=== PATIENT | female | born 1980 ===

== ENCOUNTER 2017-02-15 20:33 | Emergency (ER) | payer OTHER ==
[~2017-02-15] VITALS: Ht 165.1 cm; Wt 145.1 kg
--- NOTE | ~2017-02-15 | EKG ---
PATIENT: BEE HELTON UNIT #: [id number] Ventricular Rate: 78 BPM Atrial Rate: 78 BPM P-R Interval: 160 ms QRS Duration: 80 ms Q-T Interval: 404 ms QTC Calculation(Bezet): 460 ms P [place]: 31 degrees Calculated R [place]: 50 degrees Calculated T [place]: 23 degrees Diagnosis Line: Normal sinus rhythm Diagnosis Line: Normal ECG Diagnosis Line: No previous ECGs available Diagnosis Line: Confirmed by RICARDO BRAMBILA MD ([id number]) on 02/17/2017 Diagnosis Line: 2:56:57 PM INTERPRETING MD: PATTY ARREDONDO
== END 2017-02-15 23:35 | disposition left against medical advice (07) ==
LOC: CED 20:33 → CFTX 20:33
DX: Z53.21 Procedure and treatment not carried out due to patient leaving prior to being seen by health care provider (principal)
CPT/HCPCS: 93005